=== PATIENT | female | born 1950 | race Caucasian/White ===

== ENCOUNTER 2020-08-17 07:28 | Emergency (ER) | payer OTHER ==
[2020-08-17 07:35] VITALS: BP 160/110; PULSE 95; TEMP 98.9; BMI 29.2
== END 2020-08-17 09:21 | disposition home or self-care (01) ==
LOC: FER 07:28
DX: R53.83 Other fatigue (principal); M79.10 Myalgia, unspecified site; R09.81 Nasal congestion; Z11.59 Encounter for screening for other viral diseases
CPT/HCPCS: 71045-TC-FY; 87804; 99284-25; C9803; U0003

== ENCOUNTER 2021-03-20 09:25 | Emergency (ER) | payer OTHER ==
[2021-03-20 09:34] VITALS: BP 126/85; PULSE 84; TEMP 97.9; BMI 29.2
[2021-03-20] MEDS ORDERED: predniSONE 20 MG TABLET (UD) PO ONE (09:42)
[2021-03-20] MEDS ORDERED: predniSONE 10 MG TABLET (UD) ONE (09:47)
== END 2021-03-20 10:11 | disposition home or self-care (01) ==
LOC: FER 09:25
DX: L23.7 Allergic contact dermatitis due to plants, except food (principal)
CPT/HCPCS: 99283-25

== ENCOUNTER 2021-12-10 13:15 | Emergency (ER) | payer OTHER ==
[2021-12-10 13:42] VITALS: BP 156/100; PULSE 85; TEMP 98.1; BMI 28.3
[2021-12-10] MEDS ORDERED: ALBUTEROL SO4 2.5/IPRATROPIUM 0.5 INH SOL 3 ML VIAL.NEB. NEB ONE ×2 (13:42→14:13)
[2021-12-10] MEDS ORDERED: DEXAMETHASONE 4 MG TABLET (FP) PO ONE (13:42)
[2021-12-10] MEDS ORDERED: DEXAMETHASONE 4 MG TABLET (FP) ONE (14:12)
[2021-12-11 12:09] LABS: SARS-CoV-2 NAA Not Detected (Not Detected)
== END 2021-12-10 15:08 | disposition home or self-care (01) ==
LOC: FER 13:15
PROC: 3E0F7GC Introduction of Other Therapeutic Substance into Respiratory Tract, Via Natural or Artificial Opening (ICD-10-PCS; principal; 2021-12-10)
DX: J45.21 Mild intermittent asthma with (acute) exacerbation (principal); J06.9 Acute upper respiratory infection, unspecified
CPT/HCPCS: 71046-TC-FY; 87804; 99284-25; C9803-CS; U0003; U0005

== ENCOUNTER → 2022-01-01 | Emergency (ER) | payer OTHER ==
[~2022-01-01] MED LIST: ACETAMINOPHEN 1000 MG/100 ML BAG IVPB ONE; LIDOCAINE 5% TOPICAL PATCH ONE; LIDOCAINE 5% TOPICAL PATCH TP ONE
[2022-01-01 21:50] VITALS: BP 159/93; PULSE 88; TEMP 98.2; BMI 32.4
== END | disposition left against medical advice (07) ==
LOC: JER 21:39
DX: M54.50 Low back pain, unspecified (principal); R11.2 Nausea with vomiting, unspecified
CPT/HCPCS: 99283-25

== ENCOUNTER 2023-03-23 11:23 | Emergency (ER) | payer OTHER ==
[2023-03-23 11:45] VITALS: BP 120/78; PULSE 87; RESP 18; TEMP 97.8; BMI 30.2
== END 2023-03-23 15:25 | disposition home or self-care (01) ==
LOC: FER 11:23
DX: M25.532 Pain in left wrist (principal)
CPT/HCPCS: 70450-TC; 72050-TC-FY; 73030-TC-RT-FY; 73060-TC-RT-FY; 73070-TC-RT-FY; 73090-TC-RT-FY; 73130-TC-RT-FY; 73502-TC-RT-FY; 99284-25

== ENCOUNTER 2023-06-16 06:06 | Day surgery (SDC) | payer OTHER ==
[2023-06-13 10:29] VITALS: BMI 30.1
[2023-06-16] MEDS ORDERED: SUCCINYLCHOLINE CHLORIDE 200 MG/10 ML SYRINGE ONE (07:03)
[2023-06-16] MEDS ORDERED: PROPOFOL 20 ML ONE (07:03)
[2023-06-16] MEDS ORDERED: MIDAZOLAM HCL 2 MG/2 ML SINGLE DOSE VIAL ONE (07:03)
[2023-06-16] MEDS ORDERED: BUPIVACAINE LIPOSOME/PF (EXPAREL) 266 MG/20 ML VIAL ONE (07:07)
[2023-06-16] MEDS ORDERED: ACETAMINOPHEN INJECTION 100 ML IVPB ONE (07:07)
[2023-06-16] MEDS ORDERED: BUPIVACAINE HCL/PF 0.5% (5MG/ML) 10 ML VIAL ONE (07:07)
[2023-06-16] MEDS ORDERED: ACETAMINOPHEN 325 MG TABLET (FP) PO PRN (07:11)
[2023-06-16] MEDS ORDERED: oxyCODONE HCL 5 MG TABLET PO PRN ×2 (07:11)
[2023-06-16] MEDS ORDERED: SODIUM CHLORIDE 0.9% P/F 10 ML VIAL IJ ONE (07:11)
[2023-06-16] MEDS ORDERED: VANCOMYCIN 1,000 MG VIAL (RESTRICTED TO ID ONLY) ONE ×2 (07:13→07:54)
[2023-06-16] MEDS ORDERED: EPINEPHrine/PF 1 MG/1 ML (1:1,000) AMPULE ONE (07:13)
[2023-06-16] MEDS ORDERED: LACTATED RINGERS SOLUTION 1,000 ML IV SCH ×2 (07:15→10:15)
[2023-06-16] MEDS ORDERED: BUDESONIDE/FORMETEROL FUMARATE 80/4.5 mcg INHALER IH PRN (07:16)
[2023-06-16] MEDS ORDERED: ALBUTEROL SO4 HFA INHALER IH PRN (07:16)
[2023-06-16] MEDS ORDERED: TRANEXAMIC ACID 1000 MG/10 ML VIAL IVPUSH ONE (07:30)
[2023-06-16] MEDS ORDERED: CEFAZOLIN 2 GM in DEXTROSE 5%-WATER - 50 ML IVPB ONE (07:30)
[2023-06-16] MEDS ORDERED: TRANEXAMIC ACID 1000 MG/10 ML VIAL ONE (07:59)
[2023-06-16] MEDS ORDERED: MAGNESIUM HYDROX 2400MG/30ML ORAL SUSPENSION 30 ML CUP PO PRN (10:15)
[2023-06-16] MEDS ORDERED: MAG HYDROX/AL HYDROX/SIMETH 30 ML UNIT-DOSE CUP PO PRN (10:15)
[2023-06-16] MEDS: ONDANSETRON 4 MG/2 ML VIAL IVPUSH PRN ×2 (11:10→17:37)
[2023-06-16] MEDS ORDERED: ONDANSETRON 4 MG/2 ML VIAL ONE (11:12)
[2023-06-16] MEDS ORDERED: clonazePAM 0.5 MG TABLET PO PRN ×2 (14:26→22:00)
[2023-06-16] MEDS: ACETAMINOPHEN 1000 MG/100 ML BAG IVPB SCH ×2 (14:37→21:29)
[2023-06-16] MEDS: CEFAZOLIN SODIUM 2 GM in DEXTROSE 5%-WATER 100 ML IVPB SCH (17:03)
[2023-06-16] MEDS ORDERED: SUMAtriptan SUCCINATE 50 MG TABLET PO ONE (18:15)
[2023-06-16] MEDS ORDERED: VANCOMYCIN/WATER FOR INJ (PEG) 1 GM/200 ML BAG IVPB ONE (20:00)
[2023-06-16] MEDS ORDERED: SENNOSIDES/DOCUSATE COMBO (SENNA PLUS) TABLET (UD) PO SCH (22:00)
[2023-06-16] MEDS ORDERED: RIZATRIPTAN BENZOATE 5 MG PO SCH (22:00)
[2023-06-16] MEDS ORDERED: ATORVASTATIN CA 20 MG TABLET (FP) PO SCH (22:00)
[2023-06-17] MEDS: CEFAZOLIN SODIUM 2 GM in DEXTROSE 5%-WATER 100 ML IVPB SCH ×2 (01:14→08:23)
[2023-06-17] MEDS: ACETAMINOPHEN 1000 MG/100 ML BAG IVPB SCH (03:00)
[2023-06-17 06:52] VITALS: BP 140/76; PULSE 92; RESP 18; TEMP 98
[2023-06-17] MEDS ORDERED: Rizatriptan Benzoate [Rizatriptan] 10 MG Tablet PO PRN (07:11)
[2023-06-17 09:08] LABS: HEMATOCRIT 33.6 % (32.4-45.2); HEMOGLOBIN 10.8 G/dL (10.7-15.3); MCH 29.3 pg (25.7-33.7); MCHC 32.1 g/dl (32.0-36.0); MEAN CELL VOLUME 91.5 fl (80-96); PLATELET COUNT 216.5 10^3/uL (134-434); RBC 3.67 10^6/uL (3.60-5.2); RDW 14.4 % (11.6-15.6); WHITE BLOOD COUNT 6.8 10^3/uL (4.0-10.8)
[2023-06-17 09:43] LABS: CALCIUM 8.9 mg/dl (8.5-10.1); CREATININE 0.6 mg/dl (0.6-1.3); POTASSIUM 3.5 mmol/L (3.5-5.1)
[2023-06-17] MEDS ORDERED: ASPIRIN 325 MG TABLET PO SCH (10:00)
[2023-06-17] MEDS ORDERED: MULTIVITAMINS (DAILY MVI) TABLET (FP) PO SCH (10:00)
[2023-06-17] MEDS ORDERED: PANTOPRAZOLE 40 MG TABLET PO SCH (10:00)
== END 2023-06-17 11:29 | disposition home or self-care (01) ==
LOC: FASUSAT 06:06 → EDSTATUS 08:00 → FM/S 11:29 → FASUSAT 06-17 11:29
PROC: 0RPK0J6 Removal of Synthetic Substitute from Left Shoulder Joint, Humeral Surface, Open Approach (ICD-10-PCS; principal; 2023-06-16 08:15)
DX: M75.122 Complete rotator cuff tear or rupture of left shoulder, not specified as traumatic (principal); M75.52 Bursitis of left shoulder; M75.22 Bicipital tendinitis, left shoulder; M19.012 Primary osteoarthritis, left shoulder; T84.098A Other mechanical complication of other internal joint prosthesis, initial encounter; Z96.612 Presence of left artificial shoulder joint
CPT/HCPCS: 20680; 23395; 23430; 23472; C1713; C1776; 36415; 73030-TC-LT-FY; 80048; 85027; 88300-TC; 88305-TC; 88311-TC; 94760; 97116-GP; 97162-GP